=== PATIENT | female | born 1945 | race Hispanic/Latino ===

== ENCOUNTER → 2017-09-04 | Outpatient (CLI) | payer OTHER | END | disposition home or self-care (01) | LOC: RAH 14:30 | PROVIDERS: ATTEND Family Medicine | DX: Z12.31 Encounter for screening mammogram for malignant neoplasm of breast (principal) | CPT/HCPCS: 77067 ==

== ENCOUNTER → 2018-09-07 | Outpatient (CLI) | payer OTHER | END | disposition home or self-care (01) | LOC: OIH 09:28 | PROVIDERS: ATTEND Family Medicine | DX: M77.31 Calcaneal spur, right foot (principal); M25.774 Osteophyte, right foot; R22.41 Localized swelling, mass and lump, right lower limb | CPT/HCPCS: 73610; 73630 ==

== ENCOUNTER → 2018-09-22 | Outpatient (CLI) | payer OTHER | END | disposition home or self-care (01) | LOC: RAH 13:23 | PROVIDERS: ATTEND Family Medicine | DX: Z12.31 Encounter for screening mammogram for malignant neoplasm of breast (principal) | CPT/HCPCS: 77067 ==

== ENCOUNTER → 2020-04-25 | Outpatient (CLI) | payer OTHER | END | disposition home or self-care (01) | LOC: RAH 10:06 | PROVIDERS: ATTEND Family Medicine | DX: Z12.31 Encounter for screening mammogram for malignant neoplasm of breast (principal) | CPT/HCPCS: 77067 ==

== ENCOUNTER → 2020-06-06 | Outpatient (CLI) | payer OTHER | END | disposition home or self-care (01) | LOC: OIH 13:19 | PROVIDERS: ATTEND Family Medicine | DX: M77.31 Calcaneal spur, right foot (principal); M79.89 Other specified soft tissue disorders; M85.871 Other specified disorders of bone density and structure, right ankle and foot | CPT/HCPCS: 73590; 73610; 73630 ==

== ENCOUNTER → 2021-06-12 | Outpatient (CLI) | payer OTHER ==
[~2021-06-12] MED LIST: LIDOCAINE HCL 1% 20 ML VIAL ONE
== END | disposition home or self-care (01) ==
LOC: RAH 07:33
PROVIDERS: ATTEND Otolaryngology Plastic Surgery within the Head & Neck
DX: R59.0 Localized enlarged lymph nodes (principal); Z79.01 Long term (current) use of anticoagulants
CPT/HCPCS: 38505; 76942; 87070; 88305; C1887

== ENCOUNTER → 2022-05-14 | Outpatient (CLI) | payer OTHER | END | disposition home or self-care (01) | LOC: RAH 09:37 | PROVIDERS: ATTEND Family Medicine | DX: Z12.31 Encounter for screening mammogram for malignant neoplasm of breast (principal) | CPT/HCPCS: 77067 ==

== ENCOUNTER → 2023-05-18 | Outpatient (CLI) | payer OTHER | END | disposition home or self-care (01) | LOC: RAH 08:52 | PROVIDERS: ATTEND Family Medicine | DX: Z12.31 Encounter for screening mammogram for malignant neoplasm of breast (principal) | CPT/HCPCS: 77067 ==

== ENCOUNTER 2024-02-22 16:01 | Emergency (ER) | payer OTHER ==
[~2024-02-22] VITALS: Ht 165.1 cm; Wt 53.8 kg
--- NOTE | 2024-02-22 16:31 | ERN ---
ED Note History of Present Illness Stated Complaint: ABN EKG, COUGH, CONGESTION Chief Complaint: Abnormal Labs Time Seen by MD: 16:24 Dictation: Patient is a 79-year-old female with a past medical history of type 2 diabetes, hypertension, hypercholesterolemia who presents to the ED due to an abnormal EKG at her primary care physician's office demonstrating a possible acute infarct in lead V2. Patient states she has some shortness of breath and chest pain when she coughs but is otherwise okay. She has some weakness and dizziness but attributes that to not eating this morning. She also complains of some sinus pressure but denies sore throat, fevers or chills. She denies any pain elsewhere, headache, or any numbness or tingling. Allergies: Coded Allergies: sulfamethoxazole (Unverified Allergy, Unknown, 02/22/24) trimethoprim (Unverified Allergy, Unknown, 02/22/24) Past Medical History Past Medical History: Diabetes-Type II, High Cholesterol, Hypertension Surgical History: Hysterectomy, Cholecystectomy Surgical History Other: PARTIAL REMOVAL OF KIDNEY Review of System Dictation Constitutional-no chills, weight loss/gain, fever Eyes-no injury, pain, redness and discharge ENT-no injury, pain, swelling Cardiovascular no palpitations, edema. Positive for chest pain when coughing Respiratory no wheezing. Positive for some dizziness and shortness of breath when coughing Abdomen/GI-no abdominal pain, diarrhea, constipation, vomiting, nausea Back no injury and pain Genitourinary no injury, bleeding and discharge Musculoskeletal/extremities no injury, deformity Skin no rash, discoloration Neuro-no headache, numbness, tingling, seizures, tremors positive for mild weakness Psych-no suicidal ideation, homicidal ideation, hallucinations, depression, anxiety, memory loss Initial Vital Sign VS Vital Signs Date Time Temp Pulse Resp B/P (MAP) Pulse Ox O2 Delivery O2 Flow Rate FiO2 02/22/24 16:03 100.9 90 16 181/70 99 Room Air 0 Physical Exam Dictation VITAL SIGNS: Reviewed. GENERAL APPEARANCE: Alert, oriented x3, no acute distress, obese. HEAD AND FACE: Non-traumatic. EYES: PERRL, pink conjunctivas, eyelid no trauma, anterior chamber clear. EARS: Pinnas intact and no signs of trauma or erythema. Ear canals clear and no discharge. TMs no erythema. NOSE: No discharge, no bleeding. OROPHARYNX: Mouth normal, teeth no caries, tongue pink. Pharynx clear, no erythema. Tonsils no exudates, no abscesses noted. Mucous membrane moist. NECK: Supple, non-tender, no thyromegaly, no masses, no JVD, no bruits. BREAST: Deferred. CHEST: No tenderness, no crepitus, no paradoxical movement, no retractions. LUNGS: Clear, well-ventilated, symmetric, no rales, no wheezing, no rhonchi, no stridor, good breath sounds bilaterally. HEART: Regular rate, regular rhythm, no murmur, no gallops. VASCULAR: No peripheral edema. ABDOMEN: Soft, positive bowel sounds, nondistended, no guarding, nontender, no rebound, no masses no hepatomegaly, no splenomegaly, no Cortes's sign, no hernias. RECTAL: Swelling, lesion, possible pilonidal cyst GENITAL: Deferred. NEUROLOGICAL: Normal speech, gross motor function intact, gross sensory functi on intact. MUSCULOSKELETAL: Neck nontender, full range of motion, back nontender, full range of motion. EXTREMITIES: Nontender, full range of motion. SKIN: Color pink, dry, no turgor, no rash, no lacerations, no abrasions, no contusions. LYMPHATICS: Deferred. Results (Laboratory/Radiology) Laboratory/Radiology Laboratory Tests Test 02/22/24 18:14 White Blood Count 7.4 K/uL (4.8-10.8) Red Blood Count 3.76 MIL/uL (4.00-5.50) L Hemoglobin 11.1 g/dL (12.0-16.0) L Hematocrit 34.1 % (36-48) L Mean Corpuscular Volume 90.7 fL (79-99) Mean Corpuscular Hemoglobin 29.5 pg (27.0-33.0) Mean Corpuscular Hemoglobin Concent 32.6 g/dL (32.0-36.0) Red Cell Distribution Width 12.7 % (11.0-15.5) Platelet Count 144 K/uL (130-400) Mean Platelet Volume 11.1 fL (7.5-10.5) H Immature Granulocyte % (Auto) 0.3 % (0-1) Neutrophils (%) (Auto) 70.0 % (40.0-77.0) Lymphocytes (%) (Auto) 18.6 % (21.0-51.0) L Monocytes (%) (Auto) 10.3 % (3.0-13.0) Eosinophils (%) (Auto) 0.5 % (0.0-8.0) Basophils (%) (Auto) 0.3 % (0.0-5.0) Neutrophils # (Auto) 5.1 K/uL (1.8-7.7) Lymphocytes # (Auto) 1.4 K/uL (1.0-4.8) Monocytes # (Auto) 0.8 K/uL (0.1-1.0) Eosinophils # (Auto) 0.04 K/uL (0.00-0.70) Basophils # (Auto) 0.02 K/uL (0.00-0.20) Absolute Immature Granulocyte (auto 0.02 K/uL (0-1) Nucleated Red Blood Cells 0.0 % (0.0-0.19) Sodium Level 139 mmol/L (136-145) Potassium Level 4.1 mmol/L (3.5-5.1) Chloride Level 102 mmol/L (101-111) Carbon Dioxide Level 30 mmol/L (21-32) Blood Urea Nitrogen 24 mg/dL (7-18) H Creatinine 1.2 mg/dL (0.5-1.0) H Glomerular Filtration Rate Calc 46 mL/min (>90) Random Glucose 53 mg/dL (70-105) L Total Calcium 9.3 mg/dL (8.5-10.1) Total Creatine Kinase 175 U/L (21-232) Troponin I High Sensitivity 8 ng/L (4-50) B-Type Natriuretic Peptide 22 pg/mL (0-100) EKG Comment: EKG obtained 02/22/2024 at 16:17:06 Sinus rhythm Rate [address] [place] elevations. anterior leads X-RAY Comment: CXR: FINDINGS: A frontal projection of the chest was obtained. No acute pulmonary infiltrates is seen. The heart is normal in size. Prominent interstitial markings are seen. Degenerative changes are seen. No evidence of aortic calcification is seen. IMPRESSION: 1. No acute pulmonary infiltrate is seen. ED Course ED Course Orders Procedure Category Date Status Time 12 Lead Ekg Tracing- EKG 02/22/24 Logged Technical 16:08 Chest 1vw RAD 02/22/24 Resulted 16:08 Covid Rna Naat LAB 02/22/24 Logged 16:08 Influenza Type A & B, LAB 02/22/24 Logged Rapid 16:08 Cbc With Differential LAB 02/22/24 Complete 16:16 B-Type Natriuretic LAB 02/22/24 Complete Peptide 16:16 Creatine Kinase, Total LAB 02/22/24 Complete 16:16 Troponin I High LAB 02/22/24 Complete Sensitivity 16:16 Basic Metabolic Panel LAB 02/22/24 Complete 16:16 Vital Signs Date Time Temp Pulse Resp B/P (MAP) Pulse Ox O2 Delivery O2 Flow Rate FiO2 02/22/24 16:03 100.9 90 16 181/70 99 Room Air 0 Medical Decision Making [facility] MDM INITIAL IMPRESSION Initial history and physical concerning for chest pain, sinusitis Contributing medical problems: Uncontrolled hypertension, hypercholesterolemia, DM II I have reviewed the triage nursing notes and vital signs. Initial plan: Laboratory evaluation, EKG, CXR DATA REVIEW I have reviewed additional NN, repeat VS, and monitoring where indicated. Heart rate, blood pressure, and O2 saturation are acceptable. Woo diagnostic results: Other independent historian: Review of external data: ED COURSE Interventions: None Reassessment: Not indicated 1899- Patient care is being transferred to Dr. Amaya DISPOSITION Final diagnostic impression: I discussed my findings, clinical impression and treatment recommendations with the patient. My final plan for disposition was made based upon -mild risk of complications and potential morbidity of the patient's condition. -Discussion with the patient regarding management options. [diposition] DX & DISP Decision to Admit Time: 19:29 Departure Impression: Primary Impression: Chest pain Additional Impressions: Acute kidney injury, Fever Condition: Stable Referrals: PARDEEP LORA MD (PCP) MELONY DE LA CRUZ MD Feb 22, 2024 16:31 LOAN GARCIA MD Feb 22, 2024 18:50 GIUSEPPE AMAYA MD Feb 22, 2024 19:41
--- NOTE | 2024-02-22 17:48 | HMCIMG ---
CHEST 1VW HISTORY: Chest pain COMPARISON: 04/04/2015 FINDINGS: A frontal projection of the chest was obtained. No acute pulmonary infiltrates is seen. The heart is normal in size. Prominent interstitial markings are seen. Degenerative changes are seen. No evidence of aortic calcification is seen. IMPRESSION: 1. No acute pulmonary infiltrate is seen.
[2024-02-22 18:22] LABS: BASOPHILS # (AUTO) 0.02 K/uL (0.00-0.20); BASOPHILS % (AUTO) 0.3 % (0.0-5.0); EOSINOPHILS # (AUTO) 0.04 K/uL (0.00-0.70); EOSINOPHILS % (AUTO) 0.5 % (0.0-8.0); HEMATOCRIT 34.1 % (36-48); IMMATURE GRANULOCYTE ABSOLUTE 0.02 K/uL (0-1); LYMPHOCYTES # (AUTO) 1.4 K/uL (1.0-4.8); LYMPHOCYTES % (AUTO) 18.6 % (21.0-51.0); MEAN CORPUSCULAR HEMOGLOBIN 29.5 pg (27.0-33.0); MEAN CORPUSCULAR HGB CONC 32.6 g/dL (32.0-36.0); MEAN CORPUSCULAR VOLUME 90.7 fL (79-99); MONOCYTES # (AUTO) 0.8 K/uL (0.1-1.0); MONOCYTES % (AUTO) 10.3 % (3.0-13.0); NEUTROPHILS # (AUTO) 5.1 K/uL (1.8-7.7); PLATELET COUNT (AUTO) 144 K/uL (130-400); RED BLOOD CELL COUNT(AUTO) 3.76 MIL/uL (4.00-5.50); RED CELL DISTRIBUTION WIDTH 12.7 % (11.0-15.5); WHITE BLOOD COUNT (AUTO) 7.4 K/uL (4.8-10.8)
[2024-02-22 18:34] LABS: CREATININE 1.2 mg/dL (0.5-1.0); POTASSIUM 4.1 mmol/L (3.5-5.1)
[2024-02-22 18:43] LABS: B-TYPE NATRIURETIC PEPTIDE 22 pg/mL (0-100)
[2024-02-22 20:15] LABS: SARS-CoV-2, RNA, NAAT NEGATIVE SARS CoV-2 (NEGATIVE)
[2024-02-22 20:23] LABS: INFLUENZA TYPE A Negative For Type A (NEGATIVE); INFLUENZA TYPE B Negative For Type B (NEGATIVE)
--- NOTE | 2024-02-22 20:52 | NUR ---
PATIENT STATES CAN NOT PROVIDE URINE SAMPLE AT THIS TIME, SHE JUST WENT TO BATHROOM.
[2024-02-22] MEDS ORDERED: 0.9% NACL 500ML IV.SOLN 500 ML IV ONE (21:00)
[2024-02-22 21:21] LABS: BILIRUBIN,URINE NEGATIVE (NEGATIVE); COLOR,URINE LIGHT-YELLOW (YELLOW); GLUCOSE, URINE (UA) NEGATIVE (NEGATIVE); KETONES,URINE NEGATIVE (NEGATIVE); LEUKOCYTE ESTERASE ,URINE 250 Leu/uL (NEGATIVE); NITRATE,URINE NEGATIVE (NEGATIVE); OCCULT BLOOD,URINE SMALL (NEGATIVE); PH,URINE 5.5 (5.0-8.0); PROTEIN,URINE NEGATIVE (NEGATIVE); UROBILINOGEN,URINE 0.2 mg/dL (0.2-1.0)
[2024-02-22 21:23] LABS: APPEARANCE,URINE HAZY (CLEAR)
[2024-02-22 21:24] LABS: ADD UA MICROSCOPIC YES
[2024-02-22 21:26] LABS: BACTERIA,URINE FEW /HPF (None Seen); SQUAMOUS EPITHELIAL CELL,UR RARE /HPF (0-2); WBC,URINE 26-50 /HPF (0-1)
[2024-02-22] MEDS ORDERED: NITR100C4 PO (21:35)
[2024-02-22] MEDS: cefTRIAXone 1G VIAL IM ONE (21:47)
[2024-02-22 22:38] VITALS: BP 132/74; PULSE 80; RESP 18; TEMP 99.1; O2SAT 98
--- NOTE | 2024-02-23 06:33 | EKG ---
[facility] Test Date: 2024-02-22 Test Time: 16:17:06 Pat Name: DEWAYNE DURAN Department: ED Room: Gender: F Pan Pusher: [id number] : 1945 Requested By: LOAN GARCIA Order Number: [id number] Reading MD: Mk Vasques Measurements Intervals [place] Rate: 90 P: 73 VT: 205 QRS: -35 QRSD: 85 T: 75 QT: 344 QTc: 422 Interpretive Statements Sinus rhythm Left axis deviation Borderline ST elevation, anterior leads No previous ECG available for comparison Electronically Signed On 02-23-2024 20:51:10 CLIENT PROFESSIONAL by Mk Vasques Please click the below link to view image of tracing.
== END 2024-02-22 22:42 | disposition home or self-care (01) ==
LOC: EDH 16:01
DX: R07.89 Other chest pain (principal); N17.9 Acute kidney failure, unspecified; R50.9 Fever, unspecified; E11.9 Type 2 diabetes mellitus without complications; E78.00 Pure hypercholesterolemia, unspecified; I10 Essential (primary) hypertension; Z88.1 Allergy status to other antibiotic agents; Z88.2 Allergy status to sulfonamides; Z90.49 Acquired absence of other specified parts of digestive tract; Z90.710 Acquired absence of both cervix and uterus; Z20.822 Contact with and (suspected) exposure to COVID-19
CPT/HCPCS: 99285; 71045; 87635; 82550; 84484; 80048; 83880; 85025; 87086 ×2; 87186; 87804 ×2; 81001; 36415; 96372; 93005; J0696

== ENCOUNTER → 2024-03-04 | Outpatient (CLI) | payer OTHER ==
[~2024-03-04] MED LIST changes: -LIDOCAINE HCL 1% 20 ML VIAL ONE; +NITR100C4 PO
--- NOTE | 2024-03-04 13:57 | HMCSR ---
APPROVED REPORT EXAM: Two-dimensional and M-mode echocardiogram with Doppler and color Doppler. INDICATION ICD: Chest Pain Hypertension 2D Dimensions RVDd3.9 cmLVEF(%)61.0 (>50%)LVED Vol(simp.)93.2 mL IVSd0.8 (0.7-1.1cm)FS(%)33 %LVES Vol(simp.)38.1 mL LVDd4.6 (3.8-5.6cm)LA (2D)3.5 (1.6-4.0cm)LVEF(%, simp.)59 % PWd0.9 (0.7-1.1cm)Ao Root(2D)3.0 (2.0-3.7cm)LA ESV INDEX (4CH)27.60 mL/m2 IVSs0.9 cmLVOT diam1.8 (1.8-2.4cm)LA ESV INDEX (2CH)40.30 mL/m2 LVDs3.1 (2.5-4.0cm)LA ESV INDEX (BP)31.50 mL/m2 PWs1.2 cm M-Mode Dimensions EPSS0.9 cm LA (MM)2.9 (1.6-4.0cm) Ao Root(MM)3.1 (2.0-3.7cm) Aortic Valve AoV VTI0.4 mAo Mean GR7.0 mmHgLVOT VTI0.21 m GILBERTO (VMAX)1.4 cm2AVA (VTI) 1.4 cm2 Mitral Valve MV E Vmax86.3 cm/sDECEL Eolj848 ms MV A Aovd937.3 cm/sP 1/2 T93 ms E/A ratio0.7MVA (PHT)2.4 cm2 TDI E/E' Aimygn77.0E/E' Tggilzh78.6 Medial E' Peak V4.80 cm/sLateral E' Peak V4.90 cm/s Tricuspid Valve TR Vmax2.1 m/s TR Peak GR16.8 mmHg Left Ventricle The left ventricle is normal size. There is normal LV segmental wall motion. There is normal left boo tricular wall thickness. LVEF is 55-60%. Stage I diastolic dysfunction. Right Ventricle The right ventricle is normal size. The right ventricular systolic function is normal. Atria The left atrium size is normal. The right atrium size is normal. Aortic Valve The aortic valve is normal in structure. No aortic regurgitation is present. There is no aortic valvu lar stenosis. Mitral Valve The mitral valve is mildly thickened but open well. There is no mitral valve regurgitation noted. The re is no mitral valve stenosis. Tricuspid Valve The tricuspid valve is normal in structure. There is trivial tricuspid valve regurgitation noted. Pulmonic Valve The pulmonary valve is normal in structure. There is no pulmonic valvular regurgitation. Great Vessels The aortic root is normal in size. The IVC is normal in size and collapses >50% with inspiration. Pericardium There is no pericardial effusion. Conclusion LVEF is 55-60%. Stage I diastolic dysfunction. There is normal LV segmental wall motion.
== END | disposition home or self-care (01) ==
LOC: RAH 13:08
PROVIDERS: ATTEND Family Medicine
DX: I08.1 Rheumatic disorders of both mitral and tricuspid valves (principal); R07.9 Chest pain, unspecified; I10 Essential (primary) hypertension
CPT/HCPCS: 93306